=== PATIENT | female | born 1995 | race Caucasian/White ===

== ENCOUNTER 2022-11-30 19:28 | Emergency (ER) | payer MEDICAID ==
[2022-11-30 20:23] LABS: HCG UR QUAL NEGATIVE
[2022-11-30 20:26] LABS: BILIRUBIN,URINE NEGATIVE (NEGATIVE); GLUCOSE, URINE (UA) NEGATIVE (NEGATIVE); KETONES,URINE (UA) NEGATIVE (NEGATIVE); LEUKOCYTE ESTERASE, URINE TRACE (NEGATIVE); NITRITE,URINE NEGATIVE (NEGATIVE); OCCULT BLOOD,URINE LARGE (NEGATIVE); PH,URINE 6.5 PH (5.0-7.5); PROTEIN,URINE 100 mg/dL (NEGATIVE); UROBILINOGEN,URINE 0.2 (NORMAL) E.U./dL (NORMAL)
[2022-11-30 20:29] LABS: BACTERIA,URINE Few /HPF (None Seen); CLARITY,URINE TURBID (CLEAR); RBC,URINE TNTC /HPF (0-5); SQUAMOUS EPITHELIAL CELL,UR RARE Squamous (<= Few); WBC,URINE 0-3 /HPF (0-5)
[2022-11-30] MEDS ORDERED: ONDANSETRON 4 MG/2 ML VIAL IVP STA (21:46)
[2022-11-30] MEDS ORDERED: HYDROmorphone 1 MG/ML CARPUJECT IVP STA (21:46)
[2022-11-30] MEDS ORDERED: SODIUM CHLORIDE 0.9% 1,000 ML IV STA (21:46)
[2022-11-30 22:15] LABS: BASOPHILS # (AUTO) 0.1 10^3/uL (0.0-0.1); BASOPHILS % (AUTO) 0.4 %; EOSINOPHILS % (AUTO) 0.1 %; HCT - HEMATOCRIT 35.6 % (37.0-47.0); LYMPHOCYTES # (AUTO) 1.6 10^3/uL (1.5-3.5); MEAN CORPUSCULAR HEMOGLOBIN 24.2 pg (27.0-31.0); MEAN CORPUSCULAR HGB CONC 30.9 g/dL (32.0-36.0); MEAN CORPUSCULAR VOLUME 78.2 fL (81.0-99.0); MEAN PLATELET VOLUME 9.6 fL (7.9-10.8); MONOCYTES # (AUTO) 0.5 10^3/uL (0.0-1.0); MONOCYTES % (AUTO) 2.9 %; NEUTROPHILS # (AUTO) 13.4 10^3/uL (1.5-6.6); NEUTROPHILS % (AUTO) 86.2 %; PLT - PLATELET COUNT 365 10^3/uL (130-450); RED BLOOD COUNT 4.55 10^6/uL (4.20-5.40); RED CELL DISTRIBUTION WIDTH 16.2 % (12.0-15.0); WHITE BLOOD COUNT 15.6 x10^3/uL (4.8-10.8)
[2022-11-30 22:25] LABS: ALBUMIN 4.4 g/dL (3.2-5.5); ALBUMIN/GLOBULIN RATIO 1.1 (1.0-2.2); BILIRUBIN,TOTAL 0.6 mg/dL (0.2-1.0); CALCIUM 9.2 mg/dL (8.5-10.3); CREATININE 0.7 mg/dL (0.4-1.0); POTASSIUM 3.8 mmol/L (3.5-5.0); TOTAL PROTEIN 8.3 g/dL (6.7-8.2)
--- NOTE | 2022-11-30 22:49 | Ultrasound Report ---
PROCEDURE: Pelvic w/Doppler Limited INDICATIONS: left pelvic pain, vaginal bleeding with clots TECHNIQUE: Real-time transabdominal scanning was performed of the pelvic organs, with image documentation. Dopp ler interrogation was performed of the ovaries bilaterally. COMPARISON: None. FINDINGS: Uterus: Uterus is anteverted and measures 11.7 x 4.7 x 6.4 cm. Endometrium measures up to 0.4 cm in thickness. No internal vascularity within the endometrium on color Doppler interrogation. Ovaries: The right ovary measures 1.7 x 2 x 2.1 cm for a calculated volume of 3.8 mL. Left ovary ramos sures 3.1 x 1.5 x 3.2 cm with capillary volume of 7.6 mL. No adnexal masses. There are less than 12 f ollicles demonstrated within each ovary. Patent arterial and venous flow demonstrated within each ova ry. Other: No free pelvic fluid. IMPRESSION: 1. No evidence of ovarian torsion. 2. Normal endometrial thickness without discrete uterine mass or abnormal vascularity. Reviewed by: Fitz Zhang MD on 11/30/2022 10:48 PM PST Approved by: Fitz Zhang MD on 11/30/2022 10:48 PM PST Station ID: [id number]
--- NOTE | 2022-11-30 23:26 | ED Physician Documentation ---
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 Patient c/o left pelvic pain radiating to LUQ. Pain started 1-2 days ago, mild and focal to left pelvis, but at approximately 1:30 PM today and without specific inciting event or circumstances, she experienced rapid worsening of the pain as well as the spread of area of discomfort to involve left abdomen. She saw PMD yesterday; per patient, PMD suspected ruptured ovarian cyst and patient was to schedule outpatient US. Patient also c/o nausea, vomiting and abdominal bloating. She also has had vaginal bleeding with some clots since this morning. Review of Systems Constitutional: denies: Fever, Chills, Sweats Cardiac: denies: Reviewed and negative Respiratory: denies: Reviewed and negative GI: reports: Abdominal Pain, Abdominal Swelling, Nausea, Vomiting. denies: Constipation, Diarrhea, Hematemesis, Bloody / black stool : reports: Vaginal bleeding. 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 - Present Medications Home Medications: Ambulatory Orders Medication Instructions Recorded Confirmed Amox/Clav 875/125 [Augmentin 1 tablet PO Q12H 7 Days #14 tablet 12/01/22 875/125 Tab] Ondansetron Odt [Zofran Odt] 4 mg TL Q6H PRN #10 tablet 12/01/22 Oxycodone HCl/Acetaminophen 1 - 2 each PO Q6H PRN #14 tablet 12/01/22 [Percocet 5-325 mg Tablet] - Allergies Allergies/Adverse Reactions: Allergies Allergy/AdvReac Type Severity Reaction Status Date / Time No Known Drug Allergies Allergy Verified 11/30/22 19:40 - Living Situation Living Arrangement: reports: At home PD ED PE NORMAL - Vitals Vital signs reviewed: Yes - General General: Alert and oriented X 3, Well developed/nourished, Other (appears to be in mild/moderate waxing/waning discomfort during H+P) - HEENT HEENT: Moist mucous membranes - Cardiac Cardiac: RRR, No murmur - Respiratory Respiratory: No respiratory distress, Clear bilaterally - Abdomen Abdomen: Soft, Non distended, Other (mild/moderate TTP left anterior hemipelvis, LLQ; minimal LUQ TTP . no rebound , no guarding) - Back Back: No CVA TTP Results - Vitals Vitals: Oxygen O2 Source Room air - Labs Labs: Laboratory Tests 11/30/22 11/30/22 11/30/22 20:14 20:14 22:06 WBC 15.6 H RBC 4.55 Hgb 11.0 L Hct 35.6 L MCV 78.2 L MCH 24.2 L MCHC 30.9 L RDW 16.2 H Plt Count 365 MPV 9.6 Neut # (Auto) 13.4 H Lymph # (Auto) 1.6 [place] # (Auto) 0.5 Eos # (Auto) 0.0 Baso # (Auto) 0.1 Absolute Nucleated RBC 0.00 Nucleated RBC % 0.0 Sodium Potassium Chloride Carbon Dioxide Anion Gap BUN Creatinine Estimated GFR (MDRD) Glucose Calcium Total Bilirubin AST ALT Alkaline Phosphatase Total Protein Albumin Globulin Albumin/Globulin Ratio Lipase Urine Color RED/BLOODY Urine Clarity TURBID Urine pH 6.5 Ur Specific [place] 1.025 Urine Protein 100 H Urine Glucose (UA) NEGATIVE Urine Ketones NEGATIVE Urine Occult Blood LARGE H Urine Nitrite NEGATIVE Urine Bilirubin NEGATIVE Urine Urobilinogen 0.2 (NORMAL) Ur Leukocyte Esterase TRACE H Urine RBC TNTC H Urine WBC 0-3 Ur Squamous Epith Cells RARE Squamous Urine Bacteria Few Ur Microscopic Review INDICATED Urine HCG, Qual NEGATIVE 11/30/22 22:06 WBC RBC Hgb Hct MCV MCH MCHC RDW Plt Count MPV Neut # (Auto) Lymph # (Auto) [place] # (Auto) Eos # (Auto) Baso # (Auto) Absolute Nucleated RBC Nucleated RBC % Sodium 137 Potassium 3.8 Chloride 103 Carbon Dioxide 27 Anion Gap 7.0 BUN 17 Creatinine 0.7 Estimated GFR (MDRD) 100 Glucose 110 H Calcium 9.2 Total Bilirubin 0.6 AST 16 ALT 17 Alkaline Phosphatase 45 Total Protein 8.3 H Albumin 4.4 Globulin 3.9 Albumin/Globulin Ratio 1.1 Lipase 81 H Urine Color Urine Clarity Urine pH Ur Specific [place] Urine Protein Urine Glucose (UA) Urine Ketones Urine Occult Blood Urine Nitrite Urine Bilirubin Urine Urobilinogen Ur Leukocyte Esterase Urine RBC Urine WBC Ur Squamous Epith Cells Urine Bacteria Ur Microscopic Review Urine HCG, Qual - Rads (name of study) CT A/P with IV contrast Radiology: Prelim report reviewed, See rad report PD Medical Decision Making - ED course Complexity details: reviewed results, re-evaluated patient, considered differential, d/w patient ED course: Tests ordered and reviewed by me: CBC, ER abdominal panel, UA, urine HCG, CT A/P with IV contrast. Leukocytosis on CBC (15.6); hematuria on UA (expected, given c/o vaginal bleeding) but no other UA findings to suggest infection such as UTI. Mildly elevated lipase (81) but lack of epigastric tenderness makes this likely incidental finding. She is given one liter IV NS, 4mg IV zofran, 1 mg dilaudid (with subsequent redose 1mg for residual pain). She reports adequate symptomatic relief with these measures when reevaluated. CT A/P undertaken given the leukocytosis and abdominal tenderness. Per radiologist's interpretation, the CT findings are suggestive of epiploic appendigitis, although findings would also be consistent with diverticulitis (thought to be less likely per radiology). Results d/w patient and we discussed the diagnoses of epiploic appendigitis as well as diverticulitis. Given the CT findings, the onset of vaginal bleeding with clots since earlier today would seem coincident to her abdominal pain and not causative. Given possible diverticulitis, I recommended a course of augmentin and patient is agreeable to this. She is also given take-home pack of percocet; prescriptions for percocet, augmentin, and zofran e-prescribed to her pharmacy of choice. Return precautions discussed. I reviewed patient's prescription history and there are no concerning findings regarding patterns nor amounts of controlled substance prescriptions on record. Departure - Departure Disposition: 01 Home, Self Care Clinical Impression: Epiploic appendagitis Condition: Good Instructions: ED Diverticulitis Follow-Up: PRUDENCE LOYOLA MD [Primary Care Provider] - Prescriptions: Amox/Clav 875/125 [Augmentin 875/125 Tab] 1 tablet PO Q12H 7 Days #14 tablet Oxycodone HCl/Acetaminophen [Percocet 5-325 mg Tablet] 1 - 2 each PO Q6H PRN #14 tablet PRN Reason: pain Ondansetron Odt [Zofran Odt] 4 mg TL Q6H PRN #10 tablet PRN Reason: Nausea / Vomiting Comments: The CT scan of your abdomen/pelvis shows some inflammatory changes in the left lower quadrant of your abdomen around the colon. The radiologist suspects the most likely explanation for this appearance is a condition called epiploic appendagitis; as we discussed, this typically causes varying degrees of pain that can last for hours up to several days, but it is a benign condition and does not require treatment beyond rest and pain medication. Unfortunately, I do not have discharge instructions that specifically cover this diagnosis. The radiologist commented that another possible, though less likely, explanation for the findings would be diverticulitis. Instructions regarding diverticulitis are provided with these discharge sheets. You have been given a dose of an antibiotic (Augmentin) in the emergency department and a prescription for 1 week of this antibiotic has been electronically submitted to the [facility] pharmacy in [place]. Although diverticulitis is an inflammatory condition, antibiotics are often used to help prevent infectious complications. I have also electronically submitted prescriptions for Percocet (narcotic/opiate pain medication) and ondansetron (antinausea medication) to the [facility] pharmacy in [place]. Contact your primary care provider in the morning to arrange for next available appointment for reevaluation. I am prescribing a short course of narcotic pain medication for you. These are potentially dangerous and addictive medications that should be used carefully. These medications may constipate you. Take an otih-emv-jytwizt stool softener (docusate) twice daily with plenty of water while taking these medications. If you go 24 hours without a bowel movement, take yrjy-[id number]-[id number] miralax, per package instructions. Do not drink or drive while taking these medications. If you received narcotic or sedating medications while in the emergency department, do not drive for 24 hours. Store this medication in a safe, secure place and out of reach of children. It is a violation of federal law to give or sell this medication to another person or to use in a manner other than prescribed. The ED will not refill narcotic prescriptions, including prescriptions lost or stolen. To dispose of unwanted medications: 1. [facility] [address] in [place] has a medication drop box. They accept prescription medications (in pill form) Monday through Monday 9:00 a.m. to 5:00 p.m. 2. The [facility] [employer] accepts prescription medications (in pill form only) for disposal year round. Call for more information. 3. Contact the [facility] for the next [facility] sponsored prescription drug collection event. , [phone], or [phone]; Discharge Date/Time: 12/01/22 03:26
[2022-12-01] MEDS ORDERED: HYDROmorphone 1 MG/ML CARPUJECT IVP STA (00:45)
[2022-12-01] MEDS ORDERED: iohexoL-300 100 ML VIAL ONE (01:32)
[2022-12-01] MEDS ORDERED: AMOX/CLAV 875 MG/125 MG TABLET PO STA (03:02)
[2022-12-01] MEDS ORDERED: oxyCODONE/ACET 5/325 Prepack 4 PO STA (03:02)
[2022-12-01 03:21] VITALS: BP 109/81
[2022-12-01] MEDS ORDERED: iohexoL-300 100 ML VIAL IVP ONE (03:21)
--- NOTE | 2022-12-01 08:15 | CT Report ---
PROCEDURE: ABDOMEN/PELVIS W INDICATIONS: left-sided abdominal pain, tenderness CONTRAST: Omni 300 100ml TECHNIQUE: After the administration of intravenous contrast, 5 mm thick sections acquired from the diaphragms to the symphysis. 5 mm thick coronal and sagittal reformats were acquired. For radiation dose reducti on, the following was used: automated exposure control, adjustment of mA and/or kV according to taryn ent size. COMPARISON: Pelvic ultrasound 11/30/2022. FINDINGS: Image quality: Excellent. ABDOMEN: Lung bases: Lung bases are clear. Heart size is normal. Solid organs: Liver and spleen are normal in size and enhancement. No focal lesion. Gallbladder is f illed with gallstones. Biliary system is non dilated. Pancreas enhances normally. No adrenal nodul es. Kidneys demonstrate normal size and enhancement, without hydronephrosis. Peritoneum and bowel: Stranding about the colon at the left lower quadrant, (03/22). Scattered colonic diverticuli are seen. The appendix is not dilated. No small bowel obstruction. No loculated fluid co llection. No ascites. No free air. Nodes and vessels: No retroperitoneal or mesenteric adenopathy by size criteria. Aorta and inferior vena cava are normal in size. Miscellaneous: No ventral hernias. PELVIS: Genitourinary: Bladder wall thickness is normal. Anteverted uterus. Trace fluid anterior to the uter us. Miscellaneous: No inguinal hernias or adenopathy. Bones: No suspicious bony lesions. Bilateral L5 pars defects. No vertebral body compression fracture s. IMPRESSION: 1. Left lower quadrant diverticulitis. Differential diagnosis includes epiploic appendagitis. No absc ess or free air. 2. Gallbladder is filled with gallstones. No significant discrepancy with the overnight preliminary interpretation. Reviewed by: Lebron Freire MD on 12/01/2022 8:13 AM PST Approved by: Lebron Freire MD on 12/01/2022 8:13 AM PST Station ID: [id number]
== END 2022-12-01 03:26 | disposition home or self-care (01) ==
LOC: ED 19:28
DX: K63.89 Other specified diseases of intestine (principal)
CPT/HCPCS: 36415; 74177; 76856; 80053; 81001; 81025; 83690; 85025; 93976; 96374; 96375; 96376; 99284; A9270; J1170; Q9967; 81003